=== PATIENT | female | born 1935 | race Hispanic/Latino ===

== ENCOUNTER 2018-05-02 04:11 | Inpatient (IN) | payer OTHER, MEDICARE ==
[~2018-05-02] VITALS: Ht 160 cm; Wt 44.5 kg
[~2018-05-02 04:11] MED LIST: ASCO500T8 PO; CHOL200016 PO; CITA-107 PO; CYAN50008 PO; FOLI1TAB15 PO; OMEP20TA25 PO; ONDA4TAB10 PO; PHEN100C9 PO; POTA10CA44 PO; RIVA20TA PO
[2018-05-02] MEDS ORDERED: SODIUM CHLORIDE 0.9% 250 ML IV ONE (04:43)
[2018-05-02 04:47] LABS: BASOPHILS % (AUTO) 0.3 % (0.0-5.0); HEMATOCRIT 40.6 % (36-48); LYMPHOCYTES % (AUTO) 14.2 % (21.0-51.0); MEAN CORPUSCULAR HEMOGLOBIN 30.9 pg (27.0-33.0); MEAN CORPUSCULAR HGB CONC 33.9 g/dL (32.0-36.0); MEAN CORPUSCULAR VOLUME 90.9 fL (79-99); MONOCYTES % (AUTO) 5.7 % (3.0-13.0); NEUTROPHILS % (AUTO) 78.8 % (40.0-77.0); PLATELET COUNT (AUTO) 268 K/uL (130-400); RED BLOOD CELL COUNT(AUTO) 4.46 MIL/uL (4.00-5.50); WHITE BLOOD COUNT (AUTO) 7.4 K/uL (4.8-10.8)
[2018-05-02 04:57] LABS: APPEARANCE,URINE Clear (CLEAR); BILIRUBIN,URINE Negative (NEGATIVE); COLOR,URINE Yellow (YELLOW); GLUCOSE, URINE (UA) Negative (NEGATIVE); KETONES,URINE 40 mg/dL (NEGATIVE); LEUKOCYTE ESTERASE ,URINE Negative (NEGATIVE); NITRATE,URINE Negative (NEGATIVE); OCCULT BLOOD,URINE Small (NEGATIVE); PROTEIN,URINE POS 2+ (NEGATIVE)
[2018-05-02 04:59] LABS: ALBUMIN 3.4 g/dL (3.5-5.0); BILIRUBIN,TOTAL 0.3 mg/dL (0.2-1.0); CREATININE 0.4 mg/dL (0.5-1.5); TOTAL PROTEIN, SERUM 7.3 g/dL (6.0-8.3)
[2018-05-02 05:01] LABS: POTASSIUM 2.7 mmol/L (3.5-5.1)
[2018-05-02] MEDS ORDERED: IOPAMIDOL-370 75 ML VIAL IV ONE (05:10)
[2018-05-02] MEDS ORDERED: POTASSIUM CHLORIDE 10% ELIXIR 20 MEQ/15 ML UDCUP ONE (05:22)
[2018-05-02 05:25] LABS: BACTERIA,URINE Many /HPF (None Seen); RBC,URINE 0-1 /HPF (0-1); SQUAMOUS EPITHELIAL CELL,UR 0-2 /HPF (0-2)
[2018-05-02] MEDS ORDERED: ONDANSETRON HCL 4 MG/2 ML VIAL ONE (06:13)
[2018-05-02] MEDS ORDERED: SODIUM CHLORIDE 0.9% 1000ML 1,000 ML IV ONE (09:33)
[2018-05-02 12:02] VITALS: BP 190/96
[2018-05-02] MEDS: SODIUM CHLORIDE 0.9% 1000ML 1,000 ML IV SCH ×2 (12:55→22:40)
[2018-05-02 16:18] VITALS: BP 195/105
[2018-05-02 17:04] VITALS: BP 180/71
[2018-05-02] MEDS ORDERED: ENALAPRILAT DIHYDRATE 1.25MG/ML 1ML VIAL IV ONE (18:00)
[2018-05-02 20:00] VITALS: BP 183/85
[2018-05-02] MEDS ORDERED: MORPHINE SULFATE 2 MG/ML 1ML SYG ONE (22:34)
[2018-05-02] MEDS: ONDANSETRON HCL 4 MG/2 ML VIAL IVP PRN (22:39)
[2018-05-03] VITALS (8 sets, daily range): BP systolic 150–177; BP diastolic 57–88
[2018-05-03 05:58] LABS: CREATININE 0.3 mg/dL (0.5-1.5); INR 0.95 (0.85-1.15)
[2018-05-03 06:01] LABS: POTASSIUM 2.5 mmol/L (3.5-5.1)
[2018-05-03] MEDS ORDERED: POTASSIUM CHLORIDE 20MEQ/100ML 100 ML IV ONE (06:08)
[2018-05-03] MEDS ORDERED: LIDOCAINE HCL-MPF 1% 2ML VIAL ONE (06:09)
[2018-05-03] MEDS ORDERED: POTASSIUM CHLORIDE 10% ELIXIR 20 MEQ/15 ML UDCUP PO PRN ×2 (06:15)
[2018-05-03] MEDS ORDERED: POTASSIUM CHLORIDE 20MEQ/100ML 100 ML IV PRN (06:15)
[2018-05-03] MEDS ORDERED: LIDOCAINE HCL-MPF 1% 2ML VIAL IVP PRN (06:15)
[2018-05-03] MEDS ORDERED: POTASSIUM CHLORIDE 20 MEQ ERTAB PO PRN ×2 (06:15)
[2018-05-03] MEDS: ONDANSETRON HCL 4 MG/2 ML VIAL IVP PRN ×3 (08:34→21:19)
[2018-05-03] MEDS: SODIUM CHLORIDE 0.9% 1000ML 1,000 ML IV SCH ×2 (08:39→19:54)
[2018-05-03] MEDS ORDERED: PANTOPRAZOLE 40 MG/VIAL IVP SCH (09:00)
[2018-05-03] MEDS: FAMOTIDINE/PF 20 MG/2 ML VIAL IV SCH ×2 (11:33→19:54)
[2018-05-03] MEDS: POTASSIUM CHLORIDE 20MEQ/100ML 100 ML IV PRN (11:34)
[2018-05-03] MEDS: LIDOCAINE HCL-MPF 1% 2ML VIAL IVP PRN ×2 (11:34→19:54)
[2018-05-03] MEDS ORDERED: PROPOFOL 10 MG/ML 20ML VIAL IV ONE ×2 (16:30→16:31)
[2018-05-03] MEDS ORDERED: LIDOCAINE HCL 2% 20ML ONE (16:31)
[2018-05-03] MEDS ORDERED: GLYCOPYRROLATE 0.2 MG/ML 5 ML VIAL ONE (16:31)
[2018-05-03] MEDS: MAGNESIUM 2GM PREMIX 50ML 50 ML IV SCH (18:11)
[2018-05-03] MEDS: POTASSIUM CHLORIDE 20 MEQ/100 ML BAG IV SCH ×2 (19:54→22:14)
[2018-05-03] MEDS: MORPHINE SULFATE 2 MG/ML 1ML SYG IVP PRN (21:20)
[2018-05-04] VITALS (16 sets, daily range): BP systolic 125–197; BP diastolic 52–82
[2018-05-04] MEDS: POTASSIUM CHLORIDE 20 MEQ/100 ML BAG IV SCH ×2 (00:37→02:35)
[2018-05-04] MEDS: LIDOCAINE HCL-MPF 1% 2ML VIAL IVP PRN (02:34)
[2018-05-04] MEDS: SODIUM CHLORIDE 0.9% 1000ML 1,000 ML IV SCH ×2 (04:43→12:54)
[2018-05-04 05:45] LABS: CREATININE 0.4 mg/dL (0.5-1.5); POTASSIUM 3.9 mmol/L (3.5-5.1)
[2018-05-04] MEDS: FAMOTIDINE/PF 20 MG/2 ML VIAL IV SCH ×2 (09:00→20:56)
[2018-05-04] MEDS ORDERED: MORPHINE SULFATE 4 MG/1ML SYG ONE ×2 (12:42→22:29)
[2018-05-04] MEDS: ONDANSETRON HCL 4 MG/2 ML VIAL IVP PRN ×2 (12:44→22:33)
[2018-05-05] MEDS: SODIUM CHLORIDE 0.9% 1000ML 1,000 ML IV SCH ×3 (00:22→20:36)
[2018-05-05 03:00] VITALS: BP 148/79
[2018-05-05 05:55] LABS: MAGNESIUM 1.7 mg/dL (1.80-2.40)
[2018-05-05 06:01] LABS: POTASSIUM 2.8 mmol/L (3.5-5.1)
[2018-05-05] MEDS: MAGNESIUM 2GM PREMIX 50ML 50 ML IV SCH (06:16)
[2018-05-05] MEDS: LIDOCAINE HCL-MPF 1% 2ML VIAL IVP PRN ×4 (07:01→19:28)
[2018-05-05] MEDS: POTASSIUM CHLORIDE 20MEQ/100ML 100 ML IV PRN ×4 (07:01→19:28)
[2018-05-05] MEDS ORDERED: MORPHINE SULFATE 4 MG/1ML SYG ONE ×2 (07:53→21:50)
[2018-05-05 07:58] VITALS: BP 166/73
[2018-05-05] MEDS: ONDANSETRON HCL 4 MG/2 ML VIAL IVP PRN ×2 (07:59→21:53)
[2018-05-05] MEDS: FAMOTIDINE/PF 20 MG/2 ML VIAL IV SCH ×2 (07:59→20:36)
[2018-05-05] MEDS: CITALOPRAM 20 MG TABLET PO SCH (08:00)
[2018-05-05] MEDS: FOLIC ACID 1 MG TABLET PO SCH (08:00)
[2018-05-05] MEDS: ***HM***Cholecalciferol (Vitamin D3) 2,000 UNIT PO SCH (08:00)
[2018-05-05] MEDS: ASCORBIC ACID 500 MG TAB PO SCH (08:00)
[2018-05-05] MEDS: PHENYTOIN SODIUM 100 MG ERCAP PO SCH (08:07)
[2018-05-05 11:19] VITALS: BP 159/66
[2018-05-05 16:29] VITALS: BP 186/76
[2018-05-05 20:40] VITALS: BP 151/67
[2018-05-05 23:00] VITALS: BP 149/70
[2018-05-05 23:24] LABS: MAGNESIUM 1.8 mg/dL (1.80-2.40); POTASSIUM 3.1 mmol/L (3.5-5.1)
[2018-05-06] VITALS (15 sets, daily range): BP systolic 137–215; BP diastolic 67–109
[2018-05-06] MEDS: MAGNESIUM 2GM PREMIX 50ML 50 ML IV SCH (00:11)
[2018-05-06] MEDS: LIDOCAINE HCL-MPF 1% 2ML VIAL IVP PRN ×4 (01:21→22:18)
[2018-05-06] MEDS: POTASSIUM CHLORIDE 20MEQ/100ML 100 ML IV PRN ×4 (01:21→22:18)
[2018-05-06] MEDS: SODIUM CHLORIDE 0.9% 1000ML 1,000 ML IV SCH (05:17)
[2018-05-06 07:43] LABS: MAGNESIUM 2.2 mg/dL (1.80-2.40); POTASSIUM 3.4 mmol/L (3.5-5.1)
[2018-05-06] MEDS: FAMOTIDINE/PF 20 MG/2 ML VIAL IV SCH ×2 (08:49→21:18)
[2018-05-06] MEDS: CITALOPRAM 20 MG TABLET PO SCH (08:58)
[2018-05-06] MEDS: PHENYTOIN SODIUM 100 MG ERCAP PO SCH (08:58)
[2018-05-06] MEDS: CYANOCOBALAMIN (VITAMIN B-12) 1,000 MCG TABLET PO SCH (08:59)
[2018-05-06] MEDS: ***HM***Cholecalciferol (Vitamin D3) 2,000 UNIT PO SCH (08:59)
[2018-05-06] MEDS: FOLIC ACID 1 MG TABLET PO SCH (08:59)
[2018-05-06] MEDS: ASCORBIC ACID 500 MG TAB PO SCH (08:59)
[2018-05-06] MEDS: MORPHINE SULFATE 2 MG/ML 1ML SYG IVP PRN ×2 (12:42→23:27)
[2018-05-06] MEDS ORDERED: PROPOFOL 10 MG/ML 20ML VIAL IV ONE (18:47)
[2018-05-06] MEDS ORDERED: LIDOCAINE HCL 2% 20ML ONE (18:47)
[2018-05-07] MEDS: SODIUM CHLORIDE 0.9% 1000ML 1,000 ML IV SCH ×2 (01:26→03:24)
[2018-05-07] MEDS: POTASSIUM CHLORIDE 20MEQ/100ML 100 ML IV PRN ×2 (01:27→05:36)
[2018-05-07] MEDS: LIDOCAINE HCL-MPF 1% 2ML VIAL IVP PRN ×2 (01:27→05:36)
[2018-05-07 04:00] VITALS: BP 144/75
[2018-05-07 07:00] VITALS: BP 165/75
[2018-05-07] MEDS: ***HM***Cholecalciferol (Vitamin D3) 2,000 UNIT PO SCH (09:00)
[2018-05-07 11:00] VITALS: BP 167/69
[2018-05-07] MEDS: ASCORBIC ACID 500 MG TAB PO SCH (11:43)
[2018-05-07] MEDS: CYANOCOBALAMIN (VITAMIN B-12) 1,000 MCG TABLET PO SCH (11:43)
[2018-05-07] MEDS: FOLIC ACID 1 MG TABLET PO SCH (11:43)
[2018-05-07] MEDS: PHENYTOIN SODIUM 100 MG ERCAP PO SCH (11:43)
[2018-05-07] MEDS: CITALOPRAM 20 MG TABLET PO SCH (11:43)
[2018-05-07] MEDS: FAMOTIDINE/PF 20 MG/2 ML VIAL IV SCH (11:44)
== END 2018-05-07 14:59 | disposition home or self-care (01) | DRG 392 ==
LOC: EDH 04:11 → EDHIP 08:55 → 4AH 11:22 → 4BH 05-06 21:40
PROVIDERS: ADMIT Internal Medicine Hematology & Oncology; ATTEND Internal Medicine Hematology & Oncology
PROC: 0DB28ZX Excision of Middle Esophagus, Via Natural or Artificial Opening Endoscopic, Diagnostic (ICD-10-PCS; principal; 2018-05-06)
DX: K22.2 Esophageal obstruction (principal); K56.41 Fecal impaction; F32.9 Major depressive disorder, single episode, unspecified; D64.9 Anemia, unspecified; E87.6 Hypokalemia; G40.909 Epilepsy, unspecified, not intractable, without status epilepticus; I10 Essential (primary) hypertension; J44.9 Chronic obstructive pulmonary disease, unspecified; K21.9 Gastro-esophageal reflux disease without esophagitis; Z90.49 Acquired absence of other specified parts of digestive tract; Z90.3 Acquired absence of stomach [part of]; Z85.038 Personal history of other malignant neoplasm of large intestine; Z86.718 Personal history of other venous thrombosis and embolism; Z85.028 Personal history of other malignant neoplasm of stomach; Z83.3 Family history of diabetes mellitus; Z82.3 Family history of stroke
CPT/HCPCS: 36415; 74177; 76000; 80048; 80053; 81001; 83690; 83735; 84132; 84484; 85025; 85610; 85730; 88305; 88312; 93005; C9113; J2270; J2405; J2704; J3475; J3480; J3490; J7030; Q9967

== ENCOUNTER 2019-06-02 07:44 | Day surgery (SDC) | payer OTHER, MEDICARE ==
[2019-05-27 09:50] VITALS: BP 151/74
[2019-05-27 10:10] LABS: BASOPHILS % (AUTO) 0.2 % (0.0-5.0); EOSINOPHILS % (AUTO) 1.1 % (0.0-8.0); HEMATOCRIT 33.7 % (36-48); LYMPHOCYTES % (AUTO) 19.8 % (21.0-51.0); MEAN CORPUSCULAR HGB CONC 32.7 g/dL (32.0-36.0); MEAN CORPUSCULAR VOLUME 97.9 fL (79-99); MONOCYTES % (AUTO) 7.2 % (3.0-13.0); NEUTROPHILS % (AUTO) 71.7 % (40.0-77.0); PLATELET COUNT (AUTO) 273 K/uL (130-400); RED BLOOD CELL COUNT(AUTO) 3.44 MIL/uL (4.00-5.50); RED CELL DISTRIBUTION WIDTH 14.4 % (11.0-15.5); WHITE BLOOD COUNT (AUTO) 5.2 K/uL (4.8-10.8)
[2019-05-27 10:23] LABS: CREATININE 0.3 mg/dL (0.5-1.5); POTASSIUM 3.4 mmol/L (3.5-5.1)
--- NOTE | 2019-05-27 13:07 | NUR ---
ABNORMAL EKG EKG REVIEWED BY DR OCAMPO. SAID IT SHOULD BE OK. NO FURTHER ORDERS GIVEN.
[2019-05-28] MEDS: CEFAZOLIN SODIUM 1 GM VIAL IVP SCH (11:30)
[2019-05-29] MEDS: CEFAZOLIN SODIUM 1 GM VIAL IVP SCH (11:30)
--- NOTE | 2019-05-30 08:39 | NUR ---
POTASSIUM INFORMED DR. ZABRINA ANDERSON ASST. OF ABNORMAL POTASSIUM. PER DR. GERBER, PROCEED WITH PLANNED PROCEDURE. NO ORDERS RECEIVED.
[~2019-06-02] VITALS: Ht 154.9 cm; Wt 41.5 kg
[2019-06-02] VITALS (14 sets, daily range): BP systolic 135–162; BP diastolic 56–76
[~2019-06-02 07:44] MED LIST changes: +ACET-2743 PO; -ASCO500T8 PO; +CALCITONIN SALMON EN; +CHOL100040 PO; -CHOL200016 PO; -CITA-107 PO; +DENO60DI SQ; -OMEP20TA25 PO; -ONDA4TAB10 PO; +POTA-79 PO; -POTA10CA44 PO; -RIVA20TA PO; +[UNRECOGNIZED DRUG - OTHER] PO
[2019-06-02] MEDS ORDERED: LACTATED RINGERS 1000ML 1,000 ML IV ONE (09:07)
[2019-06-02] MEDS ORDERED: PROPOFOL 10 MG/ML 20ML VIAL IV ONE (10:31)
[2019-06-02] MEDS ORDERED: FENTANYL CITRATE PF 50 MCG/1 ML 2ML VIAL ONE (10:32)
[2019-06-02] MEDS ORDERED: MIDAZOLAM HCL 1 MG/ML 2ML VIAL ONE (10:32)
[2019-06-02] MEDS ORDERED: LIDOCAINE HCL 1% 20 ML VIAL ONE (10:37)
[2019-06-02] MEDS ORDERED: BUPIVACAINE/PF 0.25% 30ML VIAL IJ ONE (11:03)
[2019-06-02] MEDS ORDERED: ATROPINE SULFATE 0.4 MG/ML 1 ML VIAL IJ ONE (12:24)
[2019-06-02] MEDS ORDERED: ATROPINE SULFATE 0.1 MG/ML 10 ML SYG IVP ONE (12:25)
== END 2019-06-02 13:00 | disposition home or self-care (01) ==
LOC: DAH 07:44
PROVIDERS: ATTEND Surgery
DX: L92.8 Other granulomatous disorders of the skin and subcutaneous tissue (principal); L90.5 Scar conditions and fibrosis of skin; K21.9 Gastro-esophageal reflux disease without esophagitis; F15.90 Other stimulant use, unspecified, uncomplicated; Z79.899 Other long term (current) drug therapy; Z87.01 Personal history of pneumonia (recurrent); Z85.028 Personal history of other malignant neoplasm of stomach; Z90.3 Acquired absence of stomach [part of]; Z90.49 Acquired absence of other specified parts of digestive tract; Z82.3 Family history of stroke; Z82.49 Family history of ischemic heart disease and other diseases of the circulatory system; Z83.3 Family history of diabetes mellitus
CPT/HCPCS: 11406; 12032; 36415; 80048; 85025; 88304; 93005; A4452; J0461 ×2; J0690; J2250; J2704; J3010; J3490; J7030; J7120

== ENCOUNTER 2020-03-18 15:04 | Inpatient (IN) | payer OTHER, MEDICARE ==
[~2020-03-18] VITALS: Ht 165.1 cm; Wt 44.0 kg
[2020-03-18 16:27] LABS: BASOPHILS % (AUTO) 0.2 % (0.0-5.0); EOSINOPHILS % (AUTO) 0.2 % (0.0-8.0); HEMATOCRIT 29.9 % (36-48); LYMPHOCYTES % (AUTO) 14.6 % (21.0-51.0); MEAN CORPUSCULAR HEMOGLOBIN 30.8 pg (27.0-33.0); MEAN CORPUSCULAR HGB CONC 32.4 g/dL (32.0-36.0); MEAN CORPUSCULAR VOLUME 94.9 fL (79-99); MONOCYTES % (AUTO) 8.3 % (3.0-13.0); NEUTROPHILS % (AUTO) 76.3 % (40.0-77.0); PLATELET COUNT (AUTO) 239 K/uL (130-400); RED BLOOD CELL COUNT(AUTO) 3.15 MIL/uL (4.00-5.50); RED CELL DISTRIBUTION WIDTH 15.3 % (11.0-15.5); WHITE BLOOD COUNT (AUTO) 8.3 K/uL (4.8-10.8)
[2020-03-18 16:31] LABS: CREATININE 0.3 mg/dL (0.5-1.5); POTASSIUM 3.4 mmol/L (3.5-5.1)
[2020-03-18 16:34] LABS: INR 0.95 (0.85-1.15); PARTIAL THROMBOPLASTIN TIME 22.9 SEC (26.3-35.5); PROTHROMBIN TIME 10.3 SEC (9.6-11.6)
[2020-03-18 16:36] LABS: ALBUMIN 2.6 g/dL (3.5-5.0); BILIRUBIN,TOTAL 0.3 mg/dL (0.2-1.0); TOTAL PROTEIN, SERUM 5.6 g/dL (6.0-8.3)
[2020-03-18] MEDS ORDERED: ONDANSETRON HCL 4 MG/2 ML VIAL ONE (19:39)
[2020-03-18] MEDS ORDERED: MORPHINE SULFATE 2 MG/ML 1ML SYG ONE (19:40)
[2020-03-18] MEDS ORDERED: IPRATROPIUM/ALBUTEROL SULFATE 3 ML SOLUTION IH PRN (20:30)
[2020-03-18] MEDS ORDERED: ACETAMINOPHEN 325 MG TAB PO PRN (20:30)
[2020-03-18 22:36] VITALS: BP 149/59
[2020-03-19] MEDS: MORPHINE SULFATE 2 MG/ML 1ML SYG IVP PRN ×2 (00:32→08:22)
[2020-03-19] MEDS: LACTATED RINGERS 1000ML 1,000 ML IV SCH ×3 (00:57→20:25)
[2020-03-19 03:36] VITALS: BP 103/49
[2020-03-19 05:35] LABS: HEMATOCRIT 29.3 % (36-48); MEAN CORPUSCULAR HEMOGLOBIN 30.8 pg (27.0-33.0); MEAN CORPUSCULAR HGB CONC 31.1 g/dL (32.0-36.0); MEAN CORPUSCULAR VOLUME 99.3 fL (79-99); RED BLOOD CELL COUNT(AUTO) 2.95 MIL/uL (4.00-5.50); RED CELL DISTRIBUTION WIDTH 15.5 % (11.0-15.5); WHITE BLOOD COUNT (AUTO) 5.8 K/uL (4.8-10.8)
[2020-03-19 05:46] LABS: CREATININE 0.3 mg/dL (0.5-1.5); POTASSIUM 3.3 mmol/L (3.5-5.1)
[2020-03-19 05:49] LABS: INR 0.92 (0.85-1.15); PARTIAL THROMBOPLASTIN TIME 23.1 SEC (26.3-35.5)
[2020-03-19 08:00] VITALS: BP 116/62
[2020-03-19] MEDS: ONDANSETRON HCL 4 MG/2 ML VIAL IVP PRN (08:22)
--- NOTE | 2020-03-19 08:56 | NUR ---
i went over pt's home meds with her and entered last taken, will speak to [facility] about resuming; i spoke to dr hernandez on the phone and he stated he wants medical clearance for surgery and plan on doing tomorrow once clearance gotten; ok to feed today.
[2020-03-19 12:00] VITALS: BP 116/56
--- NOTE | 2020-03-19 12:00 | NUR ---
eric Leon psych arnp for [facility] here to see patient; i informed her of need for surgical clearance and she stated she would talk to dr Couch about it. she also resumed pt's home medications.
--- NOTE | 2020-03-19 12:52 | NUR ---
dr hernandez here to see patient he stated he planned on taking pt to surgery tomorrow pending clearance; i also gave him pt's daughters phone number and he stated he would call her and update her.
--- NOTE | 2020-03-19 13:20 | NUR ---
RD NOTIFICATION Pt admitted with L Hip Fracture. Diet advanced to Regular diet order. Pt pending surgical clearance. Low BMI status (16.1). Pt with advanced age (84 y/o). Recommend 60mL ProMod QD. Recommend Ensure TID. RD to continue to monitor. Please notify as additional nutrition concerns arise. Thank you. Addendum: 03/19/20 at [address] RD Amended: Links added.
[2020-03-19] MEDS: PHENYTOIN 100 MG/4 ML UDCUP PO SCH (14:34)
[2020-03-19] MEDS ORDERED: POTASSIUM CHLORIDE 10% ELIXIR 20 MEQ/15 ML UDCUP PO PRN (15:00)
[2020-03-19] MEDS ORDERED: POTASSIUM CHLORIDE 20 MEQ ERTAB PO PRN (15:00)
[2020-03-19] MEDS ORDERED: ALBUTEROL INHALER 90MCG/INH IH PRN (15:00)
[2020-03-19] MEDS ORDERED: POTASSIUM CHLORIDE 20MEQ/100ML 100 ML IV PRN (15:00)
[2020-03-19] MEDS ORDERED: LIDOCAINE HCL-MPF 1% 2ML VIAL IV PRN (15:00)
--- NOTE | 2020-03-19 15:20 | NUR ---
DAMEON NOTE/IA MET WITH PATIENT IN ROOM. PER PATIENT, IS INDEPENDENT WITH ADLS, LIVES WITH SPOUSE, NO PROVIDER OR HH, HAS ROLLING WALKER, WC, BSC, SHOWER CHAIR AND FEELS SAFE TO RETURN HOME ONCE DISCHARGED FROM HOSPITAL. Addendum: 03/19/20 at 1523 by JC HDEZ RN CM Amended: Links added.
[2020-03-19 16:00] VITALS: BP 147/62
[2020-03-19] MEDS: POTASSIUM CHLORIDE 20 MEQ ERTAB PO SCH (17:54)
[2020-03-19] MEDS: ACETAMINOPHEN EXTRA STRENGTH 500 MG TABLET PO PRN (20:25)
[2020-03-19 21:40] VITALS: BP 110/55
[2020-03-20] VITALS (27 sets, daily range): BP systolic 104–170; BP diastolic 46–71
[2020-03-20 05:20] LABS: BASOPHILS % (AUTO) 0.1 % (0.0-5.0); EOSINOPHILS % (AUTO) 0.4 % (0.0-8.0); HEMATOCRIT 28.7 % (36-48); LYMPHOCYTES % (AUTO) 15.5 % (21.0-51.0); MEAN CORPUSCULAR HEMOGLOBIN 31.4 pg (27.0-33.0); MEAN CORPUSCULAR HGB CONC 28.6 g/dL (32.0-36.0); MONOCYTES % (AUTO) 6.6 % (3.0-13.0); PLATELET COUNT (AUTO) 173 K/uL (130-400); RED BLOOD CELL COUNT(AUTO) 2.61 MIL/uL (4.00-5.50); RED CELL DISTRIBUTION WIDTH 16.3 % (11.0-15.5); WHITE BLOOD COUNT (AUTO) 8.4 K/uL (4.8-10.8)
[2020-03-20 05:40] LABS: BILIRUBIN,TOTAL 0.3 mg/dL (0.2-1.0); CREATININE 0.4 mg/dL (0.5-1.5); MAGNESIUM 2.1 mg/dL (1.80-2.40); PHOSPHORUS 2.9 mg/dL (2.5-4.9); TOTAL PROTEIN, SERUM 4.7 g/dL (6.0-8.3)
[2020-03-20] MEDS: LACTATED RINGERS 1000ML 1,000 ML IV SCH (06:27)
[2020-03-20] MEDS: POTASSIUM CHLORIDE 20 MEQ ERTAB PO SCH ×2 (08:00→16:48)
[2020-03-20] MEDS: CALCITONIN SALMON NASAL SCH (09:00)
[2020-03-20] MEDS: PHENYTOIN SODIUM 100 MG ERCAP PO SCH (09:00)
[2020-03-20] MEDS: CYANOCOBALAMIN (VITAMIN B-12) 1,000 MCG TABLET PO SCH (09:00)
[2020-03-20] MEDS: MULTIVITAMIN TABLET PO SCH (09:00)
[2020-03-20] MEDS: FOLIC ACID 1 MG TABLET PO SCH (09:00)
[2020-03-20] MEDS: PHENYTOIN 100 MG/4 ML UDCUP PO SCH (09:47)
[2020-03-20] MEDS ORDERED: CEFAZOLIN SODIUM 1 GM VIAL ONE (12:48)
[2020-03-20] MEDS ORDERED: ROPIVACAINE 0.5% 5MG/ML 30ML IJ ONE (13:06)
[2020-03-20] MEDS ORDERED: KETAMINE 50MG/ML SYRINGE 50 MG/ML DISP.SYRIN IV ONE (13:06)
[2020-03-20] MEDS ORDERED: SUCCINYLCHOLINE CHLORIDE 20 MG/ML 10 ML VIAL ONE (13:08)
[2020-03-20] MEDS ORDERED: LIDOCAINE PF 2% 5ML ABBOJECT ONE (13:08)
[2020-03-20] MEDS ORDERED: PROPOFOL 10 MG/ML 20ML VIAL IV ONE (13:08)
[2020-03-20] MEDS ORDERED: ROCURONIUM 10MG/1ML SYR 10 MG/ML ML ONE (13:08)
[2020-03-20] MEDS ORDERED: GLYCOPYRROLATE 1 MG/5 ML SYRINGE ONE (13:27)
[2020-03-20] MEDS ORDERED: NEOSTIGMINE 5MG/5ML SYR IV ONE (13:33)
[2020-03-20] MEDS ORDERED: PHENYLEPHRINE HCL 10 MG/ML 1ML VIAL IV ONE (13:43)
[2020-03-20] MEDS ORDERED: ONDANSETRON HCL 4 MG/2 ML VIAL ONE (13:54)
--- NOTE | 2020-03-20 16:30 | NUR ---
REPORT RECEIVED FROM BEATA MORA ( PACU ). PATIENT S/P LEFT HIP HEMIARTHROPLASTY UNDER BLOCK AND GENERAL ANESTHESIA. ANCEF X 2 DOSES PENDING TO ADMINISTER. PATIENT STABLE AT THIS TIME.
[2020-03-20] MEDS: ONDANSETRON HCL 4 MG/2 ML VIAL IVP PRN (19:40)
[2020-03-20] MEDS: CEFAZOLIN SODIUM 1 GM VIAL IVP SCH (20:44)
[2020-03-20] MEDS: ACETAMINOPHEN EXTRA STRENGTH 500 MG TABLET PO PRN (21:28)
[2020-03-21] MEDS: LACTATED RINGERS 1000ML 1,000 ML IV SCH ×2 (01:07→16:47)
[2020-03-21 04:05] VITALS: BP 121/48
[2020-03-21] MEDS: CEFAZOLIN SODIUM 1 GM VIAL IVP SCH (04:59)
[2020-03-21 05:11] LABS: HEMATOCRIT 24.9 % (36-48)
[2020-03-21 05:34] LABS: CREATININE 0.3 mg/dL (0.5-1.5); MAGNESIUM 1.7 mg/dL (1.80-2.40); POTASSIUM 3.5 mmol/L (3.5-5.1)
[2020-03-21 08:00] VITALS: BP 121/48
[2020-03-21] MEDS: PHENYTOIN SODIUM 100 MG ERCAP PO SCH (09:00)
[2020-03-21] MEDS: CALCITONIN SALMON NASAL SCH (09:00)
[2020-03-21] MEDS: ONDANSETRON HCL 4 MG/2 ML VIAL IVP PRN (09:07)
[2020-03-21] MEDS: CYANOCOBALAMIN (VITAMIN B-12) 1,000 MCG TABLET PO SCH (10:00)
[2020-03-21] MEDS: MULTIVITAMIN TABLET PO SCH (10:00)
[2020-03-21] MEDS: FOLIC ACID 1 MG TABLET PO SCH (10:00)
[2020-03-21] MEDS: POTASSIUM CHLORIDE 20 MEQ ERTAB PO SCH ×2 (10:00→16:40)
[2020-03-21] MEDS: PHENYTOIN 100 MG/4 ML UDCUP PO SCH (10:01)
[2020-03-21 12:00] VITALS: BP 148/75
[2020-03-21] MEDS ORDERED: ALBUTEROL INHALER 90MCG/INH IH PRN (12:00)
[2020-03-21] MEDS ORDERED: ALBUTEROL SULFATE 0.083% 2.5 MG/3 ML INH IH PRN (12:15)
[2020-03-21 16:00] VITALS: BP 110/72
[2020-03-21 20:24] VITALS: BP 123/50
[2020-03-22] VITALS (7 sets, daily range): BP systolic 119–166; BP diastolic 53–80
[2020-03-22] MEDS: LACTATED RINGERS 1000ML 1,000 ML IV SCH ×2 (04:30→17:50)
[2020-03-22] MEDS: CYANOCOBALAMIN (VITAMIN B-12) 1,000 MCG TABLET PO SCH (09:00)
[2020-03-22] MEDS: MULTIVITAMIN TABLET PO SCH (09:00)
[2020-03-22] MEDS: PHENYTOIN SODIUM 100 MG ERCAP PO SCH (09:00)
[2020-03-22] MEDS: CALCITONIN SALMON NASAL SCH (09:00)
[2020-03-22] MEDS: FOLIC ACID 1 MG TABLET PO SCH (09:01)
[2020-03-22] MEDS: POTASSIUM CHLORIDE 20 MEQ ERTAB PO SCH ×2 (09:01→16:44)
[2020-03-22] MEDS: PHENYTOIN 100 MG/4 ML UDCUP PO SCH (09:01)
--- NOTE | 2020-03-22 13:26 | NUR ---
CM NOTE/SNF REFERRAL MEET WITH PATIENT IN ROOM. PER PATIENT DECLINING SNF D/T NO VISITOR POLICY AT SNF. INFORMED PATIENT OF RECOMMENDATIONS MADE BASED ON PHYSICAL THERAPY AND NEEDS. PER PATIENT, WANTS ME TO CALL DAUGHTER TO DISCUSS RECOMMENDATION. VIKTORIYA CALLED [phone] AND WAS PLACED ON SPEAKER (SON AND SPOUSE PRESENT IN PHONE CALL) AND INFORMED OF RECOMMENDATION FOR SHORT TERM SNF. PER DAUGHTER OK WITH PATIENT GOING TO SNF FOR SHORT TERM PT. INFORMED DAUGHTER OF NO VISITOR POLICY AND PATIENT CONCERNS. PER DAUGHTER, AGREES WITH RECOMMENDATIONS FOR SHORT TERM PHYSICAL THERAPY TO IMPROVE HER MOTHER MOBILITY. SNF IN NETWORK GIVEN TO DAUGHTER: [facility]. PER DAUGHTER, SHE WILL CALL PATIENT AND DISCUSS RECOMMENDATIONS AND FOR ME TO FOLLOW UP IN AN HR WITH PATIENT FOR FINAL DECISION PLAN. PRIMARY NURSE, ZE COTA, MADE AWARE OF CONVERSATIONS BETWEEN PATIENT/FAMILY AND IErnie XIAO TO FOLLOW UP FOR SNF DECISION.
--- NOTE | 2020-03-22 13:55 | NUR ---
RD UPDATE Pt s/p surgery. Pt requesting 6 small meals Diet Order. Pt refusal of Nutritional supplements. RD to continue to monitor.
--- NOTE | 2020-03-22 14:30 | NUR ---
CM NOTE/[facility]NR REFERRAL MEET WITH PATIENT IN ROOM. PER PATIENT, OK FOR SNF: PATIENT CHOICE HNR. MADELINE OBTAINED. TEMITOPE FROM [facility] MADE AWARE OF REFERRAL, EMAILED PACKET AND PASRR. EMS FORMS IN CHART, PENDING DATE/TIME OF TRANSFER. ZE COTA, PRIMARY NURSE, MADE AWARE OF PENDING AUTHORIZATION FOR HNR.
[2020-03-22] MEDS ORDERED: LACTULOSE 20 GM/30 ML UDCUP PO SCH (20:00)
[2020-03-23 04:00] VITALS: BP 113/64
[2020-03-23] MEDS: LACTATED RINGERS 1000ML 1,000 ML IV SCH (07:10)
[2020-03-23 07:34] VITALS: BP 127/59
--- NOTE | 2020-03-23 08:10 | NUR ---
NOTE AAOX3. C/O LOWER BACK PAIN. ASSISTED HER OUT OF BED TO CHAIR AND SHE FEELS A LOT BETTER. SHE UNDERWENT LLE HIP HEMIARTHROPLASTY. DRESSING TO LEFT HIP AREA WITH SLIGHT AMOUNT OF DRY BLOODY DRAINAGE. NO N/V OR OTHER PROBLEM VOICED. P.T. WILL WORK WITH HER TODAY POSSIBLY DO SOME WALKING SINCE SHE WAS ONLY ABLE TO GET OUT OF BED TO CHAIR YESTERDAY. POSSIBLE DC TO [facility] TODAY. PENDING INSURANCE APPROVAL.
[2020-03-23] MEDS: CALCITONIN SALMON NASAL SCH (08:32)
[2020-03-23] MEDS ORDERED: DOCUSATE SODIUM 100 MG CAP PO SCH (09:00)
[2020-03-23] MEDS: CYANOCOBALAMIN (VITAMIN B-12) 1,000 MCG TABLET PO SCH (09:43)
[2020-03-23] MEDS: MULTIVITAMIN TABLET PO SCH (09:43)
[2020-03-23] MEDS: FOLIC ACID 1 MG TABLET PO SCH (09:43)
[2020-03-23] MEDS: PHENYTOIN 100 MG/4 ML UDCUP PO SCH (09:44)
[2020-03-23] MEDS: POTASSIUM CHLORIDE 20 MEQ ERTAB PO SCH (09:45)
[2020-03-23 11:05] VITALS: BP 133/74
--- NOTE | 2020-03-23 13:41 | NUR ---
CM NOTE/[facility] APPROVED PER TEMITOPE AT [facility], AUTHORIZATION RECEIVED FOR SNF. PRIMARY NURSE, POLO COTA, MADE AWARE.
[2020-03-23 15:55] VITALS: BP 132/62
--- NOTE | 2020-03-23 17:00 | NUR ---
NOTE REPORT CALLED TO [facility] AND PATIENT WILL BE TRANSFERRED THERE VIA EMS. SHE IS STABLE. NO C/O PAIN. NO N/V NO OTHER PROBLEMS VOICED. IV DC'D AND WILL GET HER READY TO LEAVE.
--- NOTE | 2020-03-23 19:50 | NUR ---
EMS HERE TO TRANSFER PT. PT EXHIBITS NO DISTRESS AT THIS TIME
== END 2020-03-23 19:50 | DRG 470 ==
LOC: EDH 15:04 → EDHIP 19:15 → 3BH 20:55
PROVIDERS: ADMIT Internal Medicine Critical Care Medicine; ATTEND Internal Medicine Critical Care Medicine
PROC: 0SRS0J9 Replacement of Left Hip Joint, Femoral Surface with Synthetic Substitute, Cemented, Open Approach (ICD-10-PCS; principal; 2020-03-20 13:13)
PROC: 3E0T3BZ Introduction of Anesthetic Agent into Peripheral Nerves and Plexi, Percutaneous Approach (ICD-10-PCS; 2020-03-20 13:13)
PROC: 30233N1 Transfusion of Nonautologous Red Blood Cells into Peripheral Vein, Percutaneous Approach (ICD-10-PCS; 2020-03-20 13:13)
DX: S72.092A Other fracture of head and neck of left femur, initial encounter for closed fracture (principal); D68.59 Other primary thrombophilia; E55.9 Vitamin D deficiency, unspecified; J44.9 Chronic obstructive pulmonary disease, unspecified; Z79.01 Long term (current) use of anticoagulants; G40.909 Epilepsy, unspecified, not intractable, without status epilepticus; F32.9 Major depressive disorder, single episode, unspecified; D64.9 Anemia, unspecified; M81.0 Age-related osteoporosis without current pathological fracture; Z85.028 Personal history of other malignant neoplasm of stomach; Z85.038 Personal history of other malignant neoplasm of large intestine; Z86.718 Personal history of other venous thrombosis and embolism; Z90.710 Acquired absence of both cervix and uterus; Z95.828 Presence of other vascular implants and grafts; W18.39XA Other fall on same level, initial encounter; Y93.89 Activity, other specified; Y92.89 Other specified places as the place of occurrence of the external cause; Y99.8 Other external cause status
CPT/HCPCS: 36415; 71045; 73502; 80048; 80053; 80185; 83735; 84100; 85014; 85018; 85025; 85027; 85610; 85730; 86850; 86900; 86901; 86922; 93005; 93306; 93356; 94664; 97039; A4344; C1776; G0378; J0330; J0690; J2001; J2370; J2405; J2704; J2710; J2795; J3490; J7030; J7120

== ENCOUNTER 2020-07-26 17:31 | Emergency (ER) | payer OTHER, MEDICARE ==
[2020-07-26 18:35] LABS: BASOPHILS % (AUTO) 0.2 % (0.0-5.0); HEMATOCRIT 31.5 % (36-48); LYMPHOCYTES % (AUTO) 7.9 % (21.0-51.0); MEAN CORPUSCULAR HEMOGLOBIN 32.2 pg (27.0-33.0); MEAN CORPUSCULAR HGB CONC 32.1 g/dL (32.0-36.0); MEAN CORPUSCULAR VOLUME 100.3 fL (79-99); MONOCYTES % (AUTO) 1.1 % (3.0-13.0); NEUTROPHILS % (AUTO) 90.4 % (40.0-77.0); PLATELET COUNT (AUTO) 257 K/uL (130-400); RED BLOOD CELL COUNT(AUTO) 3.14 MIL/uL (4.00-5.50); RED CELL DISTRIBUTION WIDTH 15.6 % (11.0-15.5); WHITE BLOOD COUNT (AUTO) 4.7 K/uL (4.8-10.8)
[2020-07-26 18:49] LABS: CREATININE 0.4 mg/dL (0.5-1.5); POTASSIUM 3.3 mmol/L (3.5-5.1)
[2020-07-26 18:51] LABS: INR 0.9 (0.85-1.15); PARTIAL THROMBOPLASTIN TIME 27.9 SEC (26.3-35.5); PROTHROMBIN TIME 9.8 SEC (9.6-11.6)
[2020-07-26 18:53] LABS: ALBUMIN 2.4 g/dL (3.5-5.0); BILIRUBIN,TOTAL 0.2 mg/dL (0.2-1.0); TOTAL PROTEIN, SERUM 5.9 g/dL (6.0-8.3)
[2020-07-26] MEDS ORDERED: POTASSIUM BICARB/CIT AC 25 MEQ TABLET.EFF ONE (19:23)
== END 2020-07-26 20:47 | disposition home or self-care (01) ==
LOC: EDH 17:31
DX: S00.83XA Contusion of other part of head, initial encounter (principal); D64.9 Anemia, unspecified; E87.6 Hypokalemia; K21.9 Gastro-esophageal reflux disease without esophagitis; W18.39XA Other fall on same level, initial encounter; Y93.01 Activity, walking, marching and hiking; Y92.89 Other specified places as the place of occurrence of the external cause; Y99.8 Other external cause status
CPT/HCPCS: 36415; 70450; 80053; 85025; 85610; 85730

== ENCOUNTER → 2021-04-26 | Outpatient (CLI) | payer OTHER, MEDICARE ==
[~2021-04-26] MED LIST changes: -CYAN50008 PO; +CYAN50009 PO
== END | disposition home or self-care (01) ==
LOC: RAH 09:32
PROVIDERS: ATTEND Surgery
DX: I25.10 Atherosclerotic heart disease of native coronary artery without angina pectoris (principal); Z90.49 Acquired absence of other specified parts of digestive tract
CPT/HCPCS: 74176

== ENCOUNTER → 2021-06-02 | Outpatient (CLI) | payer OTHER, MEDICARE | END | disposition home or self-care (01) | LOC: RAH 08:32 | PROVIDERS: ATTEND Internal Medicine Gastroenterology | DX: K22.8 Other specified diseases of esophagus (principal) | CPT/HCPCS: 74240 ==

== ENCOUNTER → 2021-12-06 | Outpatient (CLI) | payer OTHER, MEDICARE | END | disposition home or self-care (01) | LOC: RAH 10:43 | PROVIDERS: ATTEND Family Medicine | DX: M79.604 Pain in right leg (principal); M79.605 Pain in left leg | CPT/HCPCS: 93922 ==

== ENCOUNTER 2022-04-16 13:36 | Inpatient (IN) | payer OTHER, MEDICARE ==
[~2022-04-16] VITALS: Ht 152.4 cm; Wt 46.3 kg
[2022-04-16] VITALS (7 sets, daily range): BP systolic 89–158; BP diastolic 35–122
[2022-04-16] MEDS ORDERED: 0.9%NACL 1000ML 1,000 ML IV ONE (14:00)
[2022-04-16] MEDS ORDERED: ONDANSETRON 4MG INJ IVP ONE (14:00)
[2022-04-16 14:56] LABS: BASOPHILS % (AUTO) 0.2 % (0.0-5.0); HEMATOCRIT 29.9 % (36-48); LYMPHOCYTES % (AUTO) 4.1 % (21.0-51.0); MEAN CORPUSCULAR HEMOGLOBIN 31.6 pg (27.0-33.0); MEAN CORPUSCULAR HGB CONC 28.8 g/dL (32.0-36.0); MEAN CORPUSCULAR VOLUME 109.9 fL (79-99); MONOCYTES % (AUTO) 5.2 % (3.0-13.0); NEUTROPHILS % (AUTO) 89.4 % (40.0-77.0); NUCLEATED RED BLOOD CELLS 0.2 % (0.0-0.19); PLATELET COUNT (AUTO) 226 K/uL (130-400); RED BLOOD CELL COUNT(AUTO) 2.72 MIL/uL (4.00-5.50); RED CELL DISTRIBUTION WIDTH 15.5 % (11.0-15.5); WHITE BLOOD COUNT (AUTO) 16.2 K/uL (4.8-10.8)
[2022-04-16 15:09] LABS: INR 1.44 (0.85-1.15); PROTHROMBIN TIME 15.4 SEC (9.6-11.6)
[2022-04-16] MEDS: ZOSYN 3.375GM +NS 50ML IV SCH (15:14)
[2022-04-16 15:16] LABS: ALBUMIN 1.3 g/dL (3.5-5.0); BILIRUBIN,TOTAL 0.6 mg/dL (0.2-1.0); CREATININE 1.2 mg/dL (0.5-1.5); MAGNESIUM 1.8 mg/dL (1.80-2.40); PHOSPHORUS 5.1 mg/dL (2.5-4.9); POTASSIUM 3.5 mmol/L (3.5-5.1); TOTAL PROTEIN, SERUM 4.8 g/dL (6.0-8.3)
[2022-04-16] MEDS ORDERED: DIATR MEGLU/DIATRIZOATE SODIUM 30 ML BOTTLE ONE (15:17)
[2022-04-16 15:21] LABS: B-TYPE NATRIURETIC PEPTIDE 75 pg/mL (0-100)
[2022-04-16] MEDS ORDERED: DEXTROSE 50%-WATER 50 ML DISP.SYRIN IV ONE (15:29)
[2022-04-16] MEDS ORDERED: 0.9% NACL 500ML IV.SOLN 500 ML IV ONE (15:30)
[2022-04-16] MEDS: DEXTROSE 50%-WATER 50 ML DISP.SYRIN IV ONE ×2 (15:37→16:30)
[2022-04-16] MEDS ORDERED: ALBUMIN (HUMAN) 5% 250 ML IV SCH (16:00)
[2022-04-16] MEDS ORDERED: SODIUM CL 4MEQ/ML 30ML 77 MEQ in DEXTROSE 10%-WATER 980.75 ML IV SCH (16:30)
[2022-04-16] MEDS ORDERED: WATER IV SCH ×3 (17:00)
[2022-04-16] MEDS ORDERED: DEXTROSE 50% IV SCH ×3 (17:00)
[2022-04-16] MEDS ORDERED: NACL 0.9% IV SCH ×3 (17:00)
[2022-04-16] MEDS ORDERED: IOHEXOL-350 75 ML VIAL IV ONE (18:30)
[2022-04-16] MEDS ORDERED: NOREPINEPHRIN 4MG/NS 250ML 250 ML IV PRN (20:00)
[2022-04-16] MEDS ORDERED: VANCOMYCIN 1G VIAL IVPB ONE (21:00)
[2022-04-16] MEDS ORDERED: VANCOMYCIN 1G/250ML KIT 250 ML IV ONE (21:30)
[2022-04-16] MEDS ORDERED: PHARMACY COMMUNICATION MISC SCH (21:30)
[2022-04-16] MEDS: DEXTROSE 10%-WATER 1,000 ML IV SCH (21:40)
[2022-04-16 21:44] LABS: CREATININE 1.3 mg/dL (0.5-1.5); MAGNESIUM 1.8 mg/dL (1.80-2.40); PHOSPHORUS 5.5 mg/dL (2.5-4.9)
[2022-04-16 21:48] LABS: POTASSIUM 3.6 mmol/L (3.5-5.1)
[2022-04-16] MEDS ORDERED: FLUCONAZOLE 400 MG/NS 200 ML 200 ML IV SCH (22:00)
[2022-04-16 22:40] LABS: ABG BASE EXCESS -12.3 mmol/L (-2.0-3.0); ABG HCO3 14.8 mmol/L (21.0-28.0); ABG PCO2 39 mmHg (32-45)
[2022-04-16] MEDS ORDERED: SODIUM BICARB 50MEQ 50ML VIAL IV ONE (23:00)
[2022-04-16] MEDS: HYDROCORTISONE SOD SUCCINATE 100 MG/2 ML VIAL IV SCH (23:18)
[2022-04-17] VITALS (49 sets, daily range): BP systolic 62–202; BP diastolic 25–119
[2022-04-17] MEDS: INSULIN LISPRO 100 UNIT/ML 3ML SQ SCH ×4 (00:55→18:00)
[2022-04-17] MEDS: HYDROCORTISONE SOD SUCCINATE 100 MG/2 ML VIAL IV SCH ×3 (06:24→18:15)
[2022-04-17] MEDS: DEXTROSE 10%-WATER 1,000 ML IV SCH (11:07)
[2022-04-17] MEDS ORDERED: VANCOMYCIN 1G VIAL IVPB SCH (12:00)
[2022-04-17] MEDS: ZOSYN 3.375GM +NS 50ML IV SCH (14:37)
[2022-04-17] MEDS ORDERED: FLUCONAZOLE 200 MG/NS 100 ML 100 ML IV SCH (21:00)
[2022-04-17 21:59] LABS: INR 3.4 (0.85-1.15); PROTHROMBIN TIME 34.6 SEC (9.6-11.6)
[2022-04-18] VITALS (11 sets, daily range): BP systolic 100–152; BP diastolic 37–94
[2022-04-18] MEDS: HYDROCORTISONE SOD SUCCINATE 100 MG/2 ML VIAL IV SCH ×3 (00:49→12:00)
[2022-04-18] MEDS: DEXTROSE 10%-WATER 1,000 ML IV SCH ×3 (03:00→13:00)
[2022-04-18] MEDS: INSULIN LISPRO 100 UNIT/ML 3ML SQ SCH ×3 (06:00→12:00)
[2022-04-18] MEDS ORDERED: VANCOMYCIN 500MG+NS 100ML 100 ML IV SCH ×2 (09:00→16:00)
[2022-04-18] MEDS: ZOSYN 3.375GM +NS 50ML IV SCH (17:35)
[2022-04-18] MEDS ORDERED: MORPHINE 2 MG SYG IVP PRN (18:00)
[2022-04-18] MEDS ORDERED: LORAZEPAM 2 MG/ML 1 ML VIAL IVP PRN (18:00)
== END 2022-04-18 20:16 | DRG 871 ==
LOC: EDH 13:36 → EDHIP 16:31 → 2CH 22:10
PROVIDERS: ADMIT Internal Medicine Hematology & Oncology; ATTEND Internal Medicine Hematology & Oncology
PROC: 5A09357 Assistance with Respiratory Ventilation, Less than 24 Consecutive Hours, Continuous Positive Airway Pressure (ICD-10-PCS; principal; 2022-04-16)
PROC: 5A09357 Assistance with Respiratory Ventilation, Less than 24 Consecutive Hours, Continuous Positive Airway Pressure (ICD-10-PCS; 2022-04-17)
PROC: 5A09357 Assistance with Respiratory Ventilation, Less than 24 Consecutive Hours, Continuous Positive Airway Pressure (ICD-10-PCS; 2022-04-18)
DX: A41.9 Sepsis, unspecified organism (principal); R65.21 Severe sepsis with septic shock; J18.9 Pneumonia, unspecified organism; J96.01 Acute respiratory failure with hypoxia; E43 Unspecified severe protein-calorie malnutrition; K65.1 Peritoneal abscess; C16.9 Malignant neoplasm of stomach, unspecified; Z68.1 Body mass index [BMI] 19.9 or less, adult; D68.9 Coagulation defect, unspecified; Z20.822 Contact with and (suspected) exposure to COVID-19; G40.909 Epilepsy, unspecified, not intractable, without status epilepticus; M81.0 Age-related osteoporosis without current pathological fracture; D64.9 Anemia, unspecified; R57.1 Hypovolemic shock; Z90.49 Acquired absence of other specified parts of digestive tract; Z90.3 Acquired absence of stomach [part of]; R62.7 Adult failure to thrive; Z66 Do not resuscitate
CPT/HCPCS: 36415; 36600; 71045; 74176; 74177; 80048; 80053; 80202; 82435; 82550; 82803; 82947; 82948; 83605; 83735; 83880; 84100; 84132; 84145; 84295; 84484; 85018; 85025; 85610; 87635; 93005; 93306; 93356; 93931; 93970; 93971; 94660; 99291; G0378; J1450; J1720; J2405; J2543; J3370; J3490; J7030; J7050; J7070; J7131; P9045; Q9963; Q9967